=== PATIENT | male | born 1955 | race Caucasian/White ===

== ENCOUNTER 2021-12-04 14:02 | Day surgery (SDC) | payer BC ==
[~2021-12-04 14:02] MED LIST: Albuterol 0.083% 2.5 MG/3 ML Neb Soln NEB SCH; Bupivacaine 0.25% 10 ML SDV ONE; EPINEPHrine 1 MG/ML 30 ML MDV IRR SCH; Ketorolac 30 MG/ML SDV ONE; Lactated Ringers 1,000 ML IV SCH; Lidocaine 1% 4 ML ONE; Lidocaine 1%/Sod Bicarbonate in NS 8.4% 1 ML Syringe IDERM PRN; Midazolam 1 MG/ML 2 ML SDV ONE; Ondansetron 4 MG/2 ML SDV ONE; Propofol 200 MG/20 ML SDV ONE; Sodium Chloride 0.9% 10 ML Syringe FLUSH PRN; ceFAZolin 1 GM Vial ONE; fentaNYL 100 MCG/2 ML SDV ONE
[2021-12-04] MEDS ORDERED: HYDROmorphone 0.5 MG/0.5 ML Syringe IVPUSH PRN (14:42)
[2021-12-04] MEDS ORDERED: Ondansetron 4 MG/2 ML SDV IVPUSH PRN (14:42)
[2021-12-04] MEDS ORDERED: fentaNYL 100 MCG/2 ML SDV IVPUSH PRN (14:42)
[2021-12-04] MEDS ORDERED: Acetaminophen/HYDROcodone 325-5 MG Tab PO ONE (15:15)
[2021-12-04 16:40] VITALS: BP 133/72; PULSE 64
[2021-12-05] MEDS ORDERED: Sodium Chloride 0.9% 10 ML Syringe FLUSH SCH (00:01)
== END 2021-12-04 16:20 | disposition home or self-care (01) ==
LOC: JD.SDS 14:02
PROVIDERS: ATTEND Orthopaedic Surgery
DX: T84.84XA Pain due to internal orthopedic prosthetic devices, implants and grafts, initial encounter (principal); M24.662 Ankylosis, left knee; I10 Essential (primary) hypertension; F17.210 Nicotine dependence, cigarettes, uncomplicated; R73.9 Hyperglycemia, unspecified; Z96.652 Presence of left artificial knee joint; Z79.899 Other long term (current) drug therapy; Y83.1 Surgical operation with implant of artificial internal device as the cause of abnormal reaction of the patient, or of later complication, without mention of misadventure at the time of the procedure
CPT/HCPCS: 29875; A9270; J0690; J1885; J2250; J2405; J2704; J3010; J3490; J7120; 01400

== ENCOUNTER 2022-05-19 05:55 | Day surgery (SDC) | payer BC ==
[~2022-05-19 05:55] MED LIST changes: -Albuterol 0.083% 2.5 MG/3 ML Neb Soln NEB SCH; -Bupivacaine 0.25% 10 ML SDV ONE; -EPINEPHrine 1 MG/ML 30 ML MDV IRR SCH; -Ketorolac 30 MG/ML SDV ONE; -Lidocaine 1% 4 ML ONE; -Midazolam 1 MG/ML 2 ML SDV ONE; -Ondansetron 4 MG/2 ML SDV ONE; -Propofol 200 MG/20 ML SDV ONE; +Sodium Chloride 0.9% 10 ML Syringe FLUSH SCH; -ceFAZolin 1 GM Vial ONE; -fentaNYL 100 MCG/2 ML SDV ONE
[2022-05-19] MEDS ORDERED: Morphine 8 MG, EPINEPHrine 0.3 MG, Cefuroxime 750 MG, Ketorolac 30 MG, Sodium Chloride ... PRN ×5 (06:00)
[2022-05-19] MEDS ORDERED: Pregabalin 25 MG Cap PO SCH (06:00)
[2022-05-19] MEDS ORDERED: Acetaminophen 325 MG Tab PO SCH (06:00)
[2022-05-19] MEDS ORDERED: oxyCODONE ER 10 MG TAB.ER PO SCH (06:00)
[2022-05-19] MEDS ORDERED: Tranexamic Acid 1,000 MG/10 ML Vial ONE (06:13)
[2022-05-19] MEDS ORDERED: Vancomycin 1 GM SDV ONE (06:13)
[2022-05-19] MEDS ORDERED: Ondansetron 4 MG/2 ML SDV ONE (07:07)
[2022-05-19] MEDS ORDERED: Lidocaine 2% 100 MG/5 ML Syringe ONE (07:07)
[2022-05-19] MEDS ORDERED: Dexamethasone 4 MG/ML 5 ML MDV ONE (07:07)
[2022-05-19] MEDS ORDERED: Lidocaine 1% 6 ML ONE (07:07)
[2022-05-19] MEDS ORDERED: fentaNYL 100 MCG/2 ML SDV ONE (07:07)
[2022-05-19] MEDS ORDERED: Propofol 200 MG/20 ML SDV ONE ×5 (07:09→09:29)
[2022-05-19] MEDS ORDERED: Midazolam 1 MG/ML 2 ML SDV ONE (07:09)
[2022-05-19] MEDS ORDERED: ceFAZolin 2 GM Vial ONE (07:38)
[2022-05-19] MEDS ORDERED: ePHEDrine 50 MG/ML SDV ONE ×2 (08:22)
[2022-05-19] MEDS ORDERED: Albuterol/Ipratropium 3.0-0.5 MG/3 ML Neb Soln NEB ONE (08:30)
[2022-05-19] MEDS ORDERED: Lidocaine 1% 5 ML VIAL ONE (09:26)
[2022-05-19] MEDS ORDERED: Ropivacaine 0.5% 5 MG/ML 30 ML SDV ONE (10:25)
[2022-05-19] MEDS ORDERED: oxyCODONE 5 MG Tab PO SCH (11:20)
[2022-05-19 13:36] VITALS: BP 138/80; PULSE 74
[2022-05-19] MEDS ORDERED: Ondansetron 4 MG/2 ML SDV IVPUSH PRN ×2 (13:54→13:55)
[2022-05-19] MEDS ORDERED: fentaNYL 100 MCG/2 ML SDV IVPUSH PRN (13:54)
[2022-05-19] MEDS ORDERED: HYDROmorphone 0.5 MG/0.5 ML Syringe IVPUSH PRN (13:55)
== END 2022-05-19 12:30 | disposition home or self-care (01) ==
LOC: JD.SDS 05:55
PROVIDERS: ATTEND Orthopaedic Surgery
DX: T84.84XA Pain due to internal orthopedic prosthetic devices, implants and grafts, initial encounter (principal); I10 Essential (primary) hypertension; F17.210 Nicotine dependence, cigarettes, uncomplicated; Z79.899 Other long term (current) drug therapy; Z98.890 Other specified postprocedural states; Z96.652 Presence of left artificial knee joint
CPT/HCPCS: 01402; 64450; 73560-26-LT; 73560-LT; 76942; 97110-GP; 97116-GP; 97161-GP; A9270-GY; C1713; C1776; J0171; J0690; J0697; J1100; J1885; J2250; J2270; J2405; J2704; J2795; J3010; J3370; J7120; J7620-GY